=== PATIENT | female | born 1965 | race Caucasian/White ===

== ENCOUNTER → 2023-04-21 15:39 | Outpatient (CLI) | payer OTHER, SELFPAY ==
--- NOTE | 2023-04-21 15:43 | DI.RAD.S_ITS ---
PROCEDURE: XR LUMBAR SPINE 2-3V INDICATIONS: low back pain TECHNIQUE: 3 views of the lumbar spine were acquired. COMPARISON: None. FINDINGS: Bones: There is 27? left convex scoliosis centered at L3. No wedge compression deformities. There is mild intervertebral disc space narrowing, endplate sclerosis and osteophytosis. Facet sclerosis is present throughout the lumbar spine. Soft tissues: Overlying bowel gas pattern is normal. No suspicious soft tissue calcifications. IMPRESSION: Levoscoliosis and degenerative change. Dictated by: Fanny Mckeon M.D. on 04/21/2023 at 17:47 Approved by: Fanny Mckeon M.D. on 04/21/2023 at 17:50
--- NOTE | 2023-04-21 15:43 | DI.RAD.S_ITS ---
PROCEDURE: XR KNEE LT 3V INDICATIONS: knee pain TECHNIQUE: 3 views of the knee were acquired. COMPARISON: None. FINDINGS: Bones: No fractures or dislocations. No suspicious bony lesions. Soft tissues: No joint effusion. No suspicious soft tissue calcifications. IMPRESSION: No acute bony abnormality or significant effusion. Dictated by: Fanny Mckeon M.D. on 04/21/2023 at 17:51 Approved by: Fanny Mckeon M.D. on 04/21/2023 at 17:51
--- NOTE | 2023-04-21 15:43 | DI.RAD.S_ITS ---
PROCEDURE: XR HIP W PEL IF DONE LT 2V INDICATIONS: hip pain TECHNIQUE: AP pelvis with lateral view(s) of the left hip(s). COMPARISON: None. FINDINGS: Bones: No fractures or dislocations. Pelvic ring appears intact. No suspicious bony lesions. Soft tissues: The visualized bowel gas pattern is normal. No suspicious soft tissue calcifications. IMPRESSION: No acute bony abnormality. Dictated by: Fanny Mckeon M.D. on 04/21/2023 at 17:50 Approved by: Fanny Mckeon M.D. on 04/21/2023 at 17:51
== END ==
PROVIDERS: PCP Family Medicine; Referring Provider Family Medicine; Visit Provider Family Medicine
DX: M25.569 Pain in unspecified knee (principal); M25.559 Pain in unspecified hip; M54.50 Low back pain, unspecified; M41.86 Other forms of scoliosis, lumbar region; S70.02XA Contusion of left hip, initial encounter; S80.02XA Contusion of left knee, initial encounter
CPT/HCPCS: 72100; 73502; 73562

== ENCOUNTER → 2023-05-06 14:47 | Outpatient (CLI) | payer OTHER, SELFPAY ==
[2023-05-06 15:22] LABS: Hemoglobin A1C% w Est Avg Glu 5.8 % (4.0-6.0)
[2023-05-06 15:44] LABS: Alanine Aminotransferase 14 IU/L (<35); Albumin 4.3 g/dL (3.5-5.0); Albumin Globulin Ratio 1.1 (1.0-2.8); Alkaline Phosphatase 99 U/L (38-126); Aspartate Aminotransferase 19 IU/L (14-36); BUN Creatinine Ratio 13.2 (6-22); Bilirubin Total 0.4 mg/dL (0.2-1.3); Blood Urea Nitrogen 10 mg/dL (7-17); Calcium 9.5 mg/dL (8.4-10.2); Carbon Dioxide 29 mmol/L (22-32); Chloride 96 mmol/L (98-107); Cholesterol 237 mg/dL (140-199); Estimated Glomerular Filt Rate > 60 mL/min (>60); Globulin 3.8 g/dL (1.7-4.1); Glucose 101 mg/dL (70-100); HDL Cholesterol 62 mg/dL (40-60); HEMOLYSIS < 15 (0-50); LDL Cholesterol Calculated 143 mg/dL (<100); Potassium 3.7 mmol/L (3.4-5.1); Sodium 135 mmol/L (137-145); Total Protein 8.1 g/dL (6.3-8.2); Triglycerides 162 mg/dL (35-150)
[2023-05-07 19:56] LABS: HIV 1 & 2 Ab/Ag 4th Gen Combo NEGATIVE (NEGATIVE); Hep C Virus Ab w/Reflex Quant NEGATIVE s/c (NEGATIVE)
== END ==
PROVIDERS: PCP Family Medicine; Referring Provider Family Medicine; Visit Provider Family Medicine
DX: Z11.59 Encounter for screening for other viral diseases (principal); Z11.4 Encounter for screening for human immunodeficiency virus [HIV]; I10 Essential (primary) hypertension; K21.9 Gastro-esophageal reflux disease without esophagitis
CPT/HCPCS: 36415; 80053; 80061; 83036; 86803; 87389

== ENCOUNTER → 2023-05-27 15:36 | Outpatient (CLI) | payer OTHER, SELFPAY ==
--- NOTE | 2023-05-27 15:37 | DI.MG.S_ITS ---
BILATERAL DIGITAL SCREENING MAMMOGRAM 3D/2D WITH CAD: 05/27/2023 CLINICAL: Routine screening. Comparison is made to exams dated: 06/14/2021 mammogram, 04/20/2020 mammogram, and 02/12/2019 mammogram - outside location. Both breasts are heterogeneously dense, which may obscure small masses (category c / 51-75% glandular tissue). Current study was also evaluated with a Computer Aided Detection (CAD) system. There are benign post operative findings in the left breast. No significant masses, calcifications, or other findings are seen in either breast. There has been no significant interval change. IMPRESSION: BENIGN There is no mammographic evidence of malignancy. A 1 year screening mammogram is recommended. Based on the Tyrer Cuzick model (a risk assessment model) the patient's lifetime risk is 11.3% and her 10 year risk is 3.9%. According to the ACR, ACS, and NCCN guidelines, an annual breast MRI exam along with mammogram is recommended if the patient's lifetime risk is 20% or greater. This exam was interpreted at Station ID: [id number]. NOTE: For mammograms, a report in lay terms will be sent to the patient. Approximately 15% of breast malignancies will not be visualized mammographically. In the management of a palpable breast mass, a negative mammogram must not discourage biopsy of a clinically suspicious lesion. Electronically Signed By: Isra multani/cesar:05/28/2023 08:57:47 letter sent: Normal Exam ACR BI-RADS Category 2: Benign Finding(s) [id number]
== END ==
PROVIDERS: PCP Family Medicine; Referring Provider Family Medicine; Visit Provider Family Medicine
DX: Z12.31 Encounter for screening mammogram for malignant neoplasm of breast (principal); R92.333 Mammographic heterogeneous density, bilateral breasts
CPT/HCPCS: 77063; 77067

== ENCOUNTER 2023-05-28 08:23 | Day surgery (SDC) | payer OTHER, SELFPAY ==
--- NOTE | 2023-05-28 | PATH_ITS ---
[facility] Accession Number: [id number] No. of containers..04 Tissue . 01 Material submitted: . PART A: stomach - ANTRUM PART B: gastrointestinal site - GASTRIC BODY PART C: gastrointestinal site - GASTRIC POLYP PART D: esophagus, E-G Junction - GE JUNCTION . 01 Diagnosis: A. ANTRUM, BIOPSY: Gastric mucosa with mild chronic inflammation. No Helicobacter pylori organisms identified on immunonhistochemical evaluation. No intestinal metaplasia, dysplasia, or malignancy. . B. GASTRIC BODY, BIOPSY: Gastric body mucosa with features consistent with fundic gland polyp. No Helicobacter pylori organisms identified on H/E slide. No intestinal metaplasia, dysplasia, or malignancy. . C. SPECIMEN DESIGNATED GASTRIC POLYP, BIOPSY: Gastric mucosa with mild chronic inflammation and reactive foveolar hyperplasia; see comment. No Helicobacter pylori organisms identified on immunohistochemical evaluation. No intestinal metaplasia, dysplasia, or malignancy. . D. 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 Goblet cell metaplasia best seen on AB-PAS stain. No fungal organisms identified on AB-PAS stain with control staining appropriately. No dysplasia or malignancy. [facility] 06/02/2023 1312 Local . 01 Comment: C. The presence of foveolar hyperplasia may correlate with the polypoid appearance on endoscopy and may represent either a reactive process or an early gastric hyperplastic polyp. . D. The presence of this minute focus of goblet cell metaplasia may represent either early Ojeda's metaplasia or intestinal metaplasia of gastric cardia mucosa in the setting of chronic inflammation. Correlation with the clinical endoscopic appearance may be helpful in further evaluation. . 01 Electronically signed: . Sayra Mccord MD, Pathologist NPI- [id number] . 01 Gross description: . Part A: ANTRUM: Received in formalin is 3 fragment(s) of king, soft tissue measuring 0.4 x 0.1 x 0.1 cm to 0.2 x 0.2 x 0.1 cm submitted entirely in 1 cassette(s) Part B: GASTRIC BODY: Received in formalin is 2 fragment(s) of king, soft tissue measuring 0.3 x 0.2 x 0.1 cm to 0.2 x 0.2 x 0.1 cm submitted entirely in 1 cassette(s) Part C: GASTRIC POLYP: Received in formalin is 2 fragment(s) of king, soft tissue measuring 0.2 x 0.1 x 0.1 cm to 0.1 x 0.1 x 0.1 cm submitted entirely in 1 cassette(s) Part D: GE JUNCTION: Received in formalin is 2 fragment(s) of king, soft tissue measuring 0.2 x 0.2 x 0.1 cm to 0.2 x 0.1 x 0.1 cm submitted entirely in 1 cassette(s) /[facility] 05/29/2023 0503 Local . 01 Microscopic: . A. An immunohistochemical stain was performed to evaluate for Helicobacter organisms and is negative. The control stain showed appropriate reactivity. . C. An immunohistochemical stain was performed to evaluate for Helicobacter organisms and is negative. The control stain showed appropriate reactivity. . . * This test was developed and its performance characteristics determined by [facility]. It has not been cleared or approved by the U.S. Food and Drug Administration. The FDA has determined that such clearance or approval is not necessary. This test is used for clinical purposes. It should not be regarded as investigational or for research. . 01 Pathologist provided ICD-10: K29.70, D13.1, K20.80, K21.9, K22.70 . 01 CPT . 958307, 556135, 438595, 060652, I54297, S84129, 070853 Specimen Comment: A courtesy copy of this report has been sent to [phone] Performed at: 01 [facility] [address] [place] [address], [place], [place] [id number] MD Hussain Herrmann MD Phone: [phone]
[2023-05-28 08:49] VITALS: BP 150/91; PULSE 66; RESP 16; TEMP 36.2; O2SAT 99
[2023-05-28] MEDS: LACTATED RINGERS 1,000 ML 150 ML IV (08:53)
--- NOTE | 2023-05-28 09:14 | PM.PREOP ---
Pre-operative Note COVID-19 COVID-19 status: Not tested Interval Note History & Physical reviewed/Exam performed by Physician: Yes Changes to H&P: No ASA Class (for procedural sedation): II
--- NOTE | 2023-05-28 09:45 | PM.OP.EGD ---
Operative Date/Time/Diagnoses Date of procedure: 05/28/23 Time of procedure: 09:45 Pre-op diagnosis: Gastroesophageal reflux disease Post-op diagnosis: same Procedure & Clinicians Study performed: Esophagogastroduodenoscopy Same procedure as scheduled: Yes Surgeon: Nino Palm Procedure Notes Procedure in detail: Surgeon: iNno Palm MD Anesthesia: Masood Rousseau MD A timeout was performed. A bite blocked was placed. The patient was positioned in the left lateral decubitus position. Anesthesia was administered. The endoscope was inserted through the bite block and passed through the esophagus and stomach and into the duodenum. The duodenal mucosa appeared normal. The scope was withdrawn into the duodenal bulb and no other abnormalities were seen. The scope was withdrawn into the stomach. There was mild antritis and random biopsies were taken from antrum with cold forceps. There were tiny white spots mucosa of the mid portion of the gastric body, possibly calcifications in the mucosa. Random biopsies were taken from the gastric body mucosa. There was an irritated inflamed gastric body polyp which was biopsied. The scope was retroflexed and a small hiatal hernia was seen. The scope was withdrawn into the esophagus and there were some salmon-colored patches of mucosa at the GE junction and biopsies were taken. The remainder of the esophagus was normal. The scope was withdrawn. The patient was awakened and brought to recovery. Sedation time: 13 minutes Findings: Mild antritis, small white nodules in the gastric body mucosa, irritated, inflamed gastric body polyp and salmon-colored patches of mucosa at the GE junction Post-procedure Disposition: PACU
[2023-05-28 09:53] VITALS: BP 150/73; PULSE 80; RESP 18; TEMP 36.2; O2SAT 97
[2023-05-28 09:56] VITALS: BP 109/79; PULSE 85; RESP 16; O2SAT 97
[2023-05-28 10:01] VITALS: BP 124/62; PULSE 74; RESP 16; O2SAT 96
== END 2023-05-28 10:13 | disposition home or self-care (01) ==
PROVIDERS: PCP Family Medicine; Referring Provider Surgery; Visit Provider Surgery
PROC: 0DJ08ZZ Inspection of Upper Intestinal Tract, Via Natural or Artificial Opening Endoscopic (ICD-10-PCS; CPT 43235; principal; 2023-05-28 09:15)
DX: K21.9 Gastro-esophageal reflux disease without esophagitis (principal); K29.50 Unspecified chronic gastritis without bleeding; K44.9 Diaphragmatic hernia without obstruction or gangrene; K31.7 Polyp of stomach and duodenum; K22.70 Barrett's esophagus without dysplasia
CPT/HCPCS: 43239; J2704

== ENCOUNTER 2023-06-22 18:47 | Emergency (ER) | payer OTHER, SELFPAY ==
[2023-06-22 19:00] VITALS: BP 145/95; PULSE 74; RESP 18; TEMP 36.6; O2SAT 100; BMI 36.6
--- NOTE | 2023-06-22 19:05 | DI.RAD.S_ITS ---
PROCEDURE: XR ANKLE LT MIN 3V INDICATIONS: fall with pain and swelling TECHNIQUE: Three views of the ankle were acquired. COMPARISON: None. FINDINGS: Bones: No fractures or dislocations. Ankle mortise is normally aligned. No suspicious bony lesions. Small plantar calcaneal spur. Soft tissues: Moderate-sized tibiotalar joint effusion. Moderate lateral periarticular soft tissue swelling. Achilles tendon appears normal. IMPRESSION: No visible fractures or dislocation. Lateral soft tissue swelling and moderate size tibiotalar joint effusion indicates probable sprain. If there is continued concern for fracture, immobilization and reimaging in 7-10 days is recommended. Dictated by: Luzmaria Muse M.D. on 06/22/2023 at 20:40 Approved by: Luzmaria Muse M.D. on 06/22/2023 at 20:41
== END 2023-06-22 21:31 | disposition left against medical advice (07) ==
PROVIDERS: Emergency Provider Emergency Medicine; PCP Family Medicine
DX: S99.912A Unspecified injury of left ankle, initial encounter (principal); W10.9XXA Fall (on) (from) unspecified stairs and steps, initial encounter
CPT/HCPCS: 73610; 99281

== ENCOUNTER → 2024-04-05 08:37 | Outpatient (CLI) | payer OTHER, SELFPAY ==
[2024-04-05 09:54] LABS: Add Manual Diff / Slide Review NO; Basophils Absolute Auto 100 /uL (0-100); Basophils Percent Auto 1.2 % (0-2); Eosinophils Absolute Auto 100 /uL (0-450); Eosinophils Percent Auto 1.5 % (2-4); Hematocrit 37.1 % (36-46); Hemoglobin 11.7 g/dL (12.0-16.0); Lymphocytes Absolute Auto 2000 /uL (1100-4500); Lymphocytes Percent Auto 31.9 % (25-40); Mean Corpuscular HGB Conc 31.5 % (30-36); Mean Corpuscular Hemoglobin 22.7 PG (26-34); Mean Corpuscular Volume 71.9 fL (80-100); Monocytes Absolute Auto 700 /uL (0-900); Monocytes Percent Auto 10.9 % (3-14); Neutrophils Absolute Auto 3400 /uL (1500-7000); Neutrophils Percent Auto 54.5 % (50-75); Platelet Count 504 X10^3/uL (150-400); Red Blood Cell Count 5.16 X10^6/uL (4.0-5.2); Red Cell Distribution Width 17.2 % (11.6-14.8); White Blood Cell Count 6.3 X10^3/uL (4.5-11.0)
[2024-04-05 10:02] LABS: Hemoglobin A1C% w Est Avg Glu 5.4 % (4.0-6.0)
[2024-04-05 10:11] LABS: Alanine Aminotransferase 35 IU/L (<35); Albumin 4.5 g/dL (3.5-5.0); Albumin Globulin Ratio 1.2 (1.0-2.8); Alkaline Phosphatase 120 U/L (38-126); Aspartate Aminotransferase 48 IU/L (14-36); BUN Creatinine Ratio 12.4 (6-22); Bilirubin Total 0.7 mg/dL (0.2-1.3); Blood Urea Nitrogen 14 mg/dL (7-17); Calcium 9.3 mg/dL (8.4-10.2); Carbon Dioxide 27 mmol/L (22-32); Chloride 97 mmol/L (98-107); Estimated Glomerular Filt Rate 56 mL/min (>60); Globulin 3.8 g/dL (1.7-4.1); Glucose 91 mg/dL (70-100); HEMOLYSIS 39 (0-50); Lipase 198 U/L (23-300); Sodium 135 mmol/L (137-145); Total Protein 8.3 g/dL (6.3-8.2)
== END ==
PROVIDERS: PCP Family Medicine; Referring Provider Family Medicine; Visit Provider Family Medicine
DX: R73.01 Impaired fasting glucose (principal); K21.9 Gastro-esophageal reflux disease without esophagitis; R10.11 Right upper quadrant pain
CPT/HCPCS: 36415; 80053; 83036; 83690; 85025

== ENCOUNTER → 2024-04-05 08:47 | Outpatient (CLI) | payer OTHER, SELFPAY ==
--- NOTE | 2024-04-05 08:49 | DI.US.S_ITS ---
PROCEDURE: US ABDOMEN LIMITED INDICATIONS: RUQ pain. GB dz TECHNIQUE: Real-time scanning was performed of the abdominal and retroperitoneal organs, with image documentation. COMPARISON: None. FINDINGS: Liver: Liver is normal in size and homogeneous in echotexture. Liver is diffusely echogenic. Gallbladder: Multiple mobile gallstones. No wall thickening. No pericholecystic edema. Positive sonographic Arroyo's sign. Biliary ducts: Intrahepatic bile ducts are non-dilated. Extrahepatic bile duct caliber measures 7.2 mm. Normal is 6-7 mm or less in diameter, or 10 mm or less post-cholecystectomy. Pancreas: Visualized portions of the pancreas are sonographically normal. Miscellaneous: No free abdominal fluid. IMPRESSION: Cholelithiasis without sonographic evidence cholecystitis. If there is continued clinical concern for cholecystitis, a nuclear medicine HIDA scan should be considered for further evaluation. Prominent common bile duct measuring up to 7.2 millimeters. Recommend correlation with clinical and laboratory data to exclude biliary obstruction. If there is clinical concern for biliary obstruction consider MRCP for additional evaluation. Echogenic liver. Finding typically represents fatty infiltration; however, finding is nonspecific and correlation with clinical and laboratory findings is recommended to exclude other etiologies including hepatic cirrhosis. Dictated by: Rosanna Cortes MD, PhD on 04/05/2024 at 9:29 Approved by: Rosanna Cortes MD, PhD on 04/05/2024 at 9:31
== END ==
PROVIDERS: PCP Family Medicine; Referring Provider Family Medicine; Visit Provider Family Medicine
DX: K80.20 Calculus of gallbladder without cholecystitis without obstruction (principal); K21.9 Gastro-esophageal reflux disease without esophagitis; R10.11 Right upper quadrant pain; R73.01 Impaired fasting glucose; R71.8 Other abnormality of red blood cells
CPT/HCPCS: 36415; 76705; 80053; 82728; 83036; 83540; 83550; 83690; 85025

== ENCOUNTER → 2024-04-05 16:30 | Outpatient (CLI) | payer OTHER, SELFPAY ==
[2024-04-05 16:57] LABS: HEMOLYSIS 40 (0-50); Iron 74 ug/dL (37-170)
[2024-04-05 17:07] LABS: Percent Iron Saturation 22 % (15-50); Total Iron Binding Capacity 342 ug/dL (265-497); Transferrin 314 mg/dL (206-381)
[2024-04-05 17:33] LABS: Ferritin 10 ng/mL (11-264)
== END ==
LOC: LAB 16:30
PROVIDERS: PCP Family Medicine; Referring Provider Family Medicine; Visit Provider Family Medicine
DX: R71.8 Other abnormality of red blood cells (principal)
CPT/HCPCS: 82728; 83540; 83550

== ENCOUNTER → 2024-04-09 07:14 | Outpatient (CLI) | payer OTHER, SELFPAY ==
--- NOTE | 2024-04-09 07:16 | DI.MRI.S_ITS ---
PROCEDURE: MR ABDOMEN LIVER PROTOCOL INDICATIONS: RUQ pain TECHNIQUE: Coronal HASTE, axial 2D FLASH in- and [id number]; axial breath-hold T2 FSE. Dynamic axial VIBE during the administration of contrast; post-contrast coronal VIBE or 2D FLASH with fat saturation from the hepatic dome to the iliac crests. Optional diffusion weighted imaging and ADC may be performed. COMPARISON: None. FINDINGS: Image quality: Diagnostic. Lung bases: Large hiatal hernia. Liver: No solid mass. Gallbladder: Cholelithiasis without wall thickening or adjacent fat stranding to suggest acute cholecystitis. Biliary ducts: No biliary dilation. Pancreas: No ductal dilation. Spleen: Size is within normal limits. Adrenal Glands: No adrenal nodules. Kidneys and Ureters: No hydronephrosis. No solid mass. No complex renal cystic lesion which requires follow up. Stomach and Bowel: Normal colonic caliber, without significant wall thickening. Duodenal diverticulum extending into the inferior pancreatic head measuring 3.1 x 2.5 cm (series 5, image 24). Colonic diverticulosis without evidence of diverticulitis. Peritoneum: No abnormal intraperitoneal fluid. No free air. Ventral Wall: No hernia. Abdominal Nodes: No retroperitoneal or mesenteric adenopathy by size criteria. Vessels: Aorta and inferior vena cava are normal in size. Bones: No aggressive osseous abnormality. IMPRESSION: Cholelithiasis without wall thickening or adjacent fat stranding to suggest acute cholecystitis. Nonobstructive duodenal diverticulum extending into the inferior pancreatic head measuring 3.1 x 2.5 cm. No biliary or pancreatic ductal dilation. Large hiatal hernia. Colonic diverticulosis without evidence of diverticulitis. Dictated by: Enzo Nogueira M.D. on 04/11/2024 at 10:07 Approved by: Enzo Nogueira M.D. on 04/11/2024 at 10:17
== END ==
PROVIDERS: PCP Family Medicine; Referring Provider Family Medicine; Visit Provider Family Medicine
DX: K57.10 Diverticulosis of small intestine without perforation or abscess without bleeding (principal); K57.90 Diverticulosis of intestine, part unspecified, without perforation or abscess without bleeding; K80.20 Calculus of gallbladder without cholecystitis without obstruction; K44.9 Diaphragmatic hernia without obstruction or gangrene; R10.11 Right upper quadrant pain
CPT/HCPCS: 74183; A9579

== ENCOUNTER → 2024-04-21 07:42 | Outpatient (CLI) | payer OTHER, SELFPAY ==
--- NOTE | 2024-04-21 07:42 | DI.NM.S_ITS ---
PROCEDURE: NM HIDA WITH CCK PHARMACEUTICAL: 5.5 mCi Tc-99m mebrofenin IV; 2 mcg CCK IV. INDICATIONS: RUQ, cholelithiasis. r/o GB dz TECHNIQUE: Following intravenous administration of Tc-99m mebrofenin, sequential anterior abdominal images were obtained. To evaluate the contractile response of the gallbladder in response to Cholecystokinin (CCK), sincalide (0.02 ?g/kg) was administered by slow intravenous infusion approximately 60 minutes after the administration of the radiopharmaceutical. Sequential imaging was continued for 30 minutes after the start of CCK infusion. Gallbladder ejection fraction was calculated. COMPARISON: None. FINDINGS: Biliary scan: There is normal tracer uptake and excretion by the liver. There is normal visualization of the intrahepatic ducts, common bile duct, and gallbladder. There is normal tracer transit into the duodenum. CCK stimulation: There is normal contractile response of the gallbladder to CCK infusion. The calculated gallbladder ejection fraction is 65 percent ; normal values are above 35%. It has been shown that any patient abdominal pain after CCK administration is related to the rate of CCK injection, rather than to any underlying gallbladder disease (Clinical Nuclear Medicine 2012; 37: 63-70. Journal of Nuclear Medicine 2014; 55: 1-9). IMPRESSION: Normal HIDA scan. Dictated by: Enzo Nogueira M.D. on 04/21/2024 at 11:47 Approved by: Enzo Nogueira M.D. on 04/21/2024 at 11:48
== END ==
PROVIDERS: PCP Family Medicine; Referring Provider Family Medicine; Visit Provider Family Medicine
DX: K80.20 Calculus of gallbladder without cholecystitis without obstruction (principal); R10.11 Right upper quadrant pain
CPT/HCPCS: 78227; A9537; J2805

== ENCOUNTER 2024-05-17 13:41 | Day surgery (SDC) | payer OTHER, SELFPAY ==
[2024-05-10 15:05] VITALS: BMI 36.6
[2024-05-17] VITALS (10 sets, daily range): BP systolic 126–162; BP diastolic 72–91; PULSE 68–82; RESP 14–20; TEMP 36.1–36.7; O2SAT 92–99; BMI 36.6
--- NOTE | 2024-05-17 | PATH_ITS ---
[facility] Accession Number: [id number] No. of containers..01 Tissue . 01 Material submitted: . gallbladder - GALLBLADDER AND CONTENTS . 01 Diagnosis: GALLBLADDER, CHOLECYSTECTOMY: Cholelithiasis with chronic cholecystitis. No evidence of neoplasm. [facility] 05/19/2024 1311 Local . 01 Electronically signed: . Henrique Alvarez MD, PhD, Pathologist NPI- [id number] . 01 Gross description: . Received in formalin with two patient identifiers and gallbladder and contents, is a pink-king intact gallbladder, 7.4 x 2.7 x 1.4 cm. The cystic duct margin is inked blue, and a king lymph node candidate is identified 1.2 cm in greatest dimension. The lumen contains multiple brown-orange, faceted calculi, up to 0.5 cm in greatest dimension, not grossly obstructing the cystic duct, and admixed with a small amount of green mucoid bile. The mucosa is king and velvety with no yellow areas of discoloration, polyps, or lesions identified. The joseph average 0.2 cm thick. Length Control Tester sections to include the cystic duct margin, full-thickness sections, and one-half of the bisected lymph node candidate are submitted in A1. ([id number]) /[facility] 05/18/2024 1658 Local . 01 Pathologist provided ICD-10: K80.60, K81.1 . 01 CPT . 087421 Specimen Comment: A courtesy copy of this report has been sent to [phone] Performed at: [address] [facility] [address], [place], [place] [id number] MD Hussain Herrmann MD Phone: [phone]
--- NOTE | 2024-05-17 14:06 | PM.PREOP ---
Pre-operative Note COVID-19 COVID-19 status: Not tested Interval Note History & Physical reviewed/Exam performed by Physician: Yes Changes to H&P: No ASA Class (for procedural sedation): II
[2024-05-17] MEDS: ACETAMINOPHEN 325 MG TABLET 975 MG PO (14:12)
[2024-05-17] MEDS: LACTATED RINGERS 1,000 ML 42 ML IV (14:13)
[2024-05-17] MEDS: FAMOTIDINE 20 MG/2 ML VIAL IV (14:13)
[2024-05-17] MEDS: CEFAZOLIN 2 GM/100 ML PREMIX 100 ML IV (14:40)
--- NOTE | 2024-05-17 14:51 | SUR.OPER ---
Supine on padded OR bed, head on pillow, arms secured on padded arm boards at <90 degrees abduction, legs uncrossed, safety belt at thigh, tape over blanket over lower legs, footboard secured with patient feet flat against it.
[2024-05-17] MEDS: BUPIVACAINE 0.5% W/ EPI (PF) 30 ML VIAL INJ (15:00)
--- NOTE | 2024-05-17 15:38 | P.OP_ITS ---
Operative Date/Time/Diagnoses Date of procedure: 05/17/24 Time of procedure: 15:38 Pre-op diagnosis: Symptomatic cholelithiasis Post-op diagnosis: same Procedure & Clinicians Procedure: Laparoscopic cholecystectomy Same procedure as scheduled: Yes Surgeon: Nino Palm [employer] Former: Parminder Bone Anesthesia Type: General Operative Notes Procedure in detail: The patient was given preoperative antibiotics. The patient was brought to the operating room and placed on the table in the supine position. General endotracheal anesthesia was induced. The abdomen was prepped and draped. A time-out was performed. We made a 1 cm infraumbilical incision. We dissected down to the base of the umbilical stalk using cautery. We grasped the umbilical stalk with a Lola clamp to elevate the abdominal wall. We scored the fascia in the midline with cautery. We pierced the peritoneum with a Peon clamp. The Aaron port was placed and the abdomen was insufflated to 15 mmHg. A 5 mm 30 degree laparoscopic was inserted. There was no evidence of any injury from the entry. Next, we placed 5 mm ports in the subxiphoid position and right upper quadrant at the midclavicular line and anterior axillary line. The patient was then positioned in reverse Trendelenburg and the table was tilted to the left. The gallbladder was grasped at the dome and retracted cephalad. There were multiple adhesions of omentum to the gallbladder serosa which were taken down was her cautery under direct vision. The liver was quite enlarged which made optimal retraction critical for good visualization. We dissected the cystic structures with a combination of hook cautery and blunt dissection. We obtained a critical view. We placed clips on the cystic duct and artery and divided the cystic duct and artery sharply between the clips. There was also posterior arterial branch that was clipped and divided. The gallbladder was then dissected off the liver and placed in a specimen retrieval bag. We irrigated the right upper quadrant and all the aspirate returned clear. We then removed the 5 mm ports under direct vision we removed the Aaron port. We then injected some local into the fascia and closed the fascia with 2 interrupted 0 Vicryl sutures. The skin incisions were closed with 4-0 Monocryl and Steri-Strips were applied. Band-Aids were applied over the Steri-Strips. EBL: 15 mL Specimen: Gallbladder and contents Post-operative Condition: stable Disposition: PACU
[2024-05-17] MEDS: ONDANSETRON 4 MG/2 ML INJ IV ×2 (16:08→17:08)
[2024-05-17] MEDS: HYDROMORPHONE 1 MG INJ IV ×2 (16:10→16:22)
[2024-05-17] MEDS: KETOROLAC 30 MG/ML VIAL 15 MG IV (16:14)
[2024-05-17] MEDS: hydrOXYzine HCL 25 MG TABLET PO (16:31)
[2024-05-17] MEDS: OXYCODONE IR 5 MG TABLET PO (16:49)
[2024-05-17] MEDS: METOCLOPRAMIDE 10 MG/2 ML INJ IV (17:08)
== END 2024-05-17 17:16 | disposition home or self-care (01) ==
PROVIDERS: PCP Family Medicine; Referring Provider Surgery; Visit Provider Surgery
PROC: 0FT44ZZ Resection of Gallbladder, Percutaneous Endoscopic Approach (ICD-10-PCS; CPT 47562; principal; 2024-05-17 15:45)
DX: K80.10 Calculus of gallbladder with chronic cholecystitis without obstruction (principal)
CPT/HCPCS: 47562; A9270; J0690; J1100; J1171; J1885; J2250; J2405; J2704; J2765; J3010; J3490